=== PATIENT | male | born 1965 | race Caucasian/White ===

== ENCOUNTER 2018-08-21 21:06 | Inpatient (IN) | payer OTHER ==
[~2018-08-21] VITALS: Ht 177.8 cm; Wt 103.9 kg
[2018-08-21] MEDS ORDERED: SODIUM CHLORIDE 0.9% 1000ML BAG (SEPSIS BOLUS) IV ONE (21:45)
[2018-08-21] MEDS ORDERED: PIPERACILLIN/TAZ 3.375G PREMIX 50 ML IV ONE (21:45)
[2018-08-21] MEDS ORDERED: VANCOMYCIN 1 G PREMIX 200 ML IV ONE (21:45)
[2018-08-21 22:01] LABS: CHLORIDE 79 mEq/L (98-107)
[2018-08-21 22:03] LABS: BASOPHILS % 0.6 % (0.0-2.0); EOSINOPHILS % 0.7 % (0.0-5.0); LYMPHOCYTES % 13.9 % (20.0-50.0); MEAN CORPUSCULAR HEMOGLOBIN 26.9 pg (28.0-32.0); MEAN CORPUSCULAR VOLUME 81.8 fL (80.0-94.0); MEAN PLATELET VOLUME 9.1 fl (7.4-10.4); MONOCYTES % 9.9 % (2.0-8.0); NEUTROPHILS % 74.9 % (40.0-76.0); RED BLOOD CELL COUNT 2.51 mill/uL (4.7-6.1)
[2018-08-21 22:05] LABS: ETHANOL BLOOD 37 mg/dL
[2018-08-21 22:07] LABS: INR 2.2; PARTIAL THROMBOPLASTIN TIME 35.7 sec (23.4-31.0)
[2018-08-21 22:09] LABS: HEMATOCRIT. 20.5 % (42.0-52.0); HEMOGLOBIN. 6.8 g/dL (14.0-18.0); PLATELET 26 x1000/uL (130-400)
[2018-08-21 22:23] LABS: PLATELET ESTIMATE MARKEDLY DECREASED
[2018-08-21] MEDS ORDERED: LEVETIRACETAM 500MG PREMIX 100 ML IV ONE (23:45)
[2018-08-22] VITALS (13 sets, daily range): BP systolic 118–147; BP diastolic 71–88
[2018-08-22] MEDS ORDERED: SODIUM CHLORIDE 0.9% 250 ML IV ONE (00:46)
[2018-08-22 01:01] LABS: BG BASE EXCESS -3.7 mmol/L (-2.0-2.0); BG BILEVEL POS AIRWAY PRESSURE 18/5; BG CARBOXYHEMOGLOBIN 1.3 % (0.5-1.5); BG DEOXYHEMOGLOBIN 1.9 % (0.0-5.0); BG FRACTION INSPIRED OXYGEN 40; BG HCO3 ACT 20.9 mmol/L (22.0-26.0); BG METHEMOGLOBIN 0.4 % (0.0-1.5); BG OXYGEN SATURATION 98.1 % (92.0-98.5); BG OXYHEMOGLOBIN 96.4 % (94.0-97.0); BG PCO2 35.6 mmHg (35.0-45.0); BG PH 7.387 (7.350-7.450); BG PO2 108.2 mmHg (75.0-100.0); BG SAMPLE SITE RIGHT RADIAL; BG TOTAL HEMOGLOBIN 7.7 g/dL (12.0-18.0); BG VENT MODE MASK - BIPAP; BG VENT RATE 16 set
[2018-08-22] MEDS ORDERED: SODIUM CHLORIDE 3% 500 ML IV ONE (02:15)
[2018-08-22] MEDS ORDERED: HYDROCODONE/ACETAMINOPHEN 5/325MG TABLET PO PRN (05:00)
[2018-08-22] MEDS ORDERED: GUAIFENESIN 200MG/10ML SUGAR FREE UDC PO PRN (05:00)
[2018-08-22] MEDS ORDERED: HYDROMORPHONE HCL/PF 2MG/ML CPJ IV PRN (05:00)
[2018-08-22] MEDS ORDERED: IPRATROPIUM/ALBUTEROL 0.5-3(2.5)MG/3ML NEB INH PRN (05:00)
[2018-08-22] MEDS ORDERED: CLONIDINE 0.1MG TABLET PO PRN (05:00)
[2018-08-22] MEDS ORDERED: ONDANSETRON HCL 4MG/2ML INJ IV PRN (05:00)
[2018-08-22] MEDS ORDERED: DOCUSATE SODIUM 100MG CAPSULE PO PRN (05:00)
[2018-08-22] MEDS ORDERED: MAGNESIUM/ALUMINUM HYDROXIDE/SIMETHICONE 30ML UDC PO PRN (05:00)
[2018-08-22] MEDS ORDERED: NA PHOS,M-B/NA PHOS,DI-BA ENEMA 118ML PR PRN (05:00)
[2018-08-22] MEDS ORDERED: ACETAMINOPHEN 325MG TABLET PO PRN (05:00)
[2018-08-22 05:37] LABS: CHLORIDE 81 mEq/L (98-107)
[2018-08-22] MEDS: SODIUM CHLORIDE 0.9% 1,000 ML IV SCH (15:22)
[2018-08-22 16:04] LABS: HEMATOCRIT 22.2 % (42.0-52.0); HEMOGLOBIN 7.5 g/dL (14.0-18.0)
[2018-08-22 16:32] LABS: CLARITY URINE CLEAR (CLEAR); COLOR URINE ORANGE (YELLOW); KETONES URINE NEGATIVE (NEGATIVE); LEUKOCYTE ESTERASE URINE 1+ (NEGATIVE); NITRITE URINE POSITIVE (NEGATIVE); OCCULT BLOOD URINE NEGATIVE (NEGATIVE); PH URINE 5.5 (4.5-8.0); PROTEIN URINE NEGATIVE (NEGATIVE); SPECIFIC GRAVITY URINE 1.026 (1.005-1.030)
[2018-08-22 16:49] LABS: *AMPHETAMINES SCREEN URINE NEGATIVE (NEGATIVE); *BARBITURATES SCREEN URINE NEGATIVE (NEGATIVE); *BENZODIAZEPINES SCREEN URINE NEGATIVE (NEGATIVE); *COCAINE SCREEN URINE NEGATIVE (NEGATIVE); METHADONE URINE SCREEN NEGATIVE (NEGATIVE); OPIATES URINE SCREEN NEGATIVE (NEGATIVE)
[2018-08-22 16:50] LABS: CANNABINOID URINE SCREEN NEGATIVE (NEGATIVE); PHENCYCLIDINE URINE SCREEN NEGATIVE (NEGATIVE)
[2018-08-22 23:06] LABS: INR 2.4; PROTHROMBIN TIME 23.5 sec (9.6-11.0)
[2018-08-22 23:15] LABS: HEMATOCRIT 24.6 % (42.0-52.0); HEMOGLOBIN 8.4 g/dL (14.0-18.0)
[2018-08-23] VITALS (14 sets, daily range): BP systolic 117–149; BP diastolic 72–94
[2018-08-23] MEDS: SODIUM CHLORIDE 0.9% 1,000 ML IV SCH (04:40)
[2018-08-23 06:52] LABS: BASOPHILS % 0.6 % (0.0-2.0); EOSINOPHILS % 1.4 % (0.0-5.0); HEMATOCRIT. 24.6 % (42.0-52.0); HEMOGLOBIN. 8.4 g/dL (14.0-18.0); LYMPHOCYTES % 10.3 % (20.0-50.0); MEAN CORPUSCULAR HEMOGLOBIN 27.8 pg (28.0-32.0); MEAN CORPUSCULAR VOLUME 81.5 fL (80.0-94.0); MEAN PLATELET VOLUME 8.4 fl (7.4-10.4); MONOCYTES % 12.4 % (2.0-8.0); NEUTROPHILS % 75.3 % (40.0-76.0); RED BLOOD CELL COUNT 3.02 mill/uL (4.7-6.1); RED CELL DISTRIBUTION WIDTH 20.3 % (11.6-14.6)
[2018-08-23 07:41] LABS: CHLORIDE 82 mEq/L (98-107)
[2018-08-23 07:46] LABS: PLATELET 26 x1000/uL (130-400)
[2018-08-23 07:50] LABS: HDL CHOLESTEROL 11 mg/dL (40-59)
[2018-08-23 07:51] LABS: LDL CHOLESTEROL 68 mg/dL (5-100)
[2018-08-23 07:53] LABS: T4 FREE 0.96 ng/dL (0.76-1.46)
[2018-08-23] MEDS: LORAZEPAM 2MG/ML CPJ IV PRN ×2 (12:06→21:01)
[2018-08-23] MEDS: LEVOFLOXACIN 500MG PREMIX 100 ML IV SCH (12:56)
[2018-08-23] MEDS: FUROSEMIDE 40MG/4ML VIAL IVP SCH (16:49)
[2018-08-24] VITALS (12 sets, daily range): BP systolic 99–137; BP diastolic 68–84
[2018-08-24 06:00] LABS: HEMATOCRIT. 25.4 % (42.0-52.0); HEMOGLOBIN. 8.7 g/dL (14.0-18.0); MEAN CORPUSCULAR HEMOGLOBIN 28.3 pg (28.0-32.0); MEAN CORPUSCULAR VOLUME 82.4 fL (80.0-94.0); RED BLOOD CELL COUNT 3.09 mill/uL (4.7-6.1); RED CELL DISTRIBUTION WIDTH 19.9 % (11.6-14.6)
[2018-08-24 06:12] LABS: CHLORIDE 82 mEq/L (98-107)
[2018-08-24] MEDS: FUROSEMIDE 40MG/4ML VIAL IVP SCH ×2 (06:55→18:10)
[2018-08-24 10:55] LABS: PLATELET ESTIMATE MARKEDLY DECREASED
[2018-08-24 10:56] LABS: PLATELET 28 x1000/uL (130-400)
[2018-08-24] MEDS: LEVOFLOXACIN 500MG PREMIX 100 ML IV SCH (13:24)
[2018-08-24 14:18] LABS: HEPATITIS B SURFACE ANTIGEN NEGATIVE
[2018-08-24 14:48] LABS: HEPATITIS A AB IGM NEGATIVE (NEGATIVE)
[2018-08-25] VITALS (12 sets, daily range): BP systolic 97–125; BP diastolic 55–79
[2018-08-25 06:08] LABS: HEMATOCRIT. 25.8 % (42.0-52.0); HEMOGLOBIN. 8.7 g/dL (14.0-18.0); MEAN CORPUSCULAR HEMOGLOBIN 27.9 pg (28.0-32.0); MEAN CORPUSCULAR VOLUME 83.1 fL (80.0-94.0); MEAN PLATELET VOLUME 8.6 fl (7.4-10.4); RED CELL DISTRIBUTION WIDTH 20.4 % (11.6-14.6)
[2018-08-25 06:28] LABS: CHLORIDE 82 mEq/L (98-107)
[2018-08-25 06:37] LABS: INR 2.3; PROTHROMBIN TIME 23.2 sec (9.6-11.0)
[2018-08-25] MEDS: FUROSEMIDE 40MG/4ML VIAL IVP SCH ×2 (06:42→17:23)
[2018-08-25 06:52] LABS: PLATELET 30 x1000/uL (130-400)
[2018-08-25] MEDS: LEVOFLOXACIN 500MG PREMIX 100 ML IV SCH (13:06)
[2018-08-25] MEDS: LACTULOSE 20G/30ML UDC PO SCH ×2 (14:44→21:54)
[2018-08-26] VITALS (18 sets, daily range): BP systolic 95–136; BP diastolic 60–80
[2018-08-26 02:57] LABS: PLATELET ESTIMATE DECREASED
[2018-08-26 05:45] LABS: HEMATOCRIT. 25.7 % (42.0-52.0); HEMOGLOBIN. 8.7 g/dL (14.0-18.0); MEAN CORPUSCULAR HEMOGLOBIN 28.3 pg (28.0-32.0); MEAN CORPUSCULAR VOLUME 83.8 fL (80.0-94.0); MEAN PLATELET VOLUME 8.6 fl (7.4-10.4); RED BLOOD CELL COUNT 3.07 mill/uL (4.7-6.1); RED CELL DISTRIBUTION WIDTH 20.8 % (11.6-14.6)
[2018-08-26 06:41] LABS: PLATELET 31 x1000/uL (130-400)
[2018-08-26] MEDS: LACTULOSE 20G/30ML UDC PO SCH ×3 (06:59→21:44)
[2018-08-26] MEDS: FUROSEMIDE 40MG/4ML VIAL IVP SCH ×2 (06:59→16:37)
[2018-08-26 08:04] LABS: CHLORIDE 82 mEq/L (98-107)
[2018-08-26] MEDS ORDERED: POTASSIUM CHLORIDE 20MEQ TABLET SR PO SCH (09:15)
[2018-08-26 09:59] LABS: PLATELET ESTIMATE MARKEDLY DECREASED
[2018-08-26] MEDS: LEVOFLOXACIN 500MG PREMIX 100 ML IV SCH (12:30)
[2018-08-27] VITALS (23 sets, daily range): BP systolic 96–124; BP diastolic 52–75
[2018-08-27 05:12] LABS: PROTHROMBIN TIME 20.4 sec (9.6-11.0)
[2018-08-27 05:19] LABS: HEMATOCRIT. 22.5 % (42.0-52.0); HEMOGLOBIN. 7.6 g/dL (14.0-18.0); MEAN CORPUSCULAR HEMOGLOBIN 28.2 pg (28.0-32.0); MEAN CORPUSCULAR VOLUME 83.1 fL (80.0-94.0); MEAN PLATELET VOLUME 8.3 fl (7.4-10.4); RED BLOOD CELL COUNT 2.71 mill/uL (4.7-6.1); RED CELL DISTRIBUTION WIDTH 21.4 % (11.6-14.6)
[2018-08-27] MEDS: LACTULOSE 20G/30ML UDC PO SCH ×3 (05:23→21:34)
[2018-08-27 05:47] LABS: CHLORIDE 86 mEq/L (98-107)
[2018-08-27 06:01] LABS: PHOSPHORUS 3.4 mg/dL (2.5-4.9)
[2018-08-27 06:39] LABS: PLATELET 48 x1000/uL (130-400)
[2018-08-27 07:26] LABS: PLATELET ESTIMATE MARKEDLY DECREASED
[2018-08-27] MEDS: FUROSEMIDE 40MG/4ML VIAL IVP SCH ×2 (08:17→16:48)
[2018-08-27 12:36] LABS: HEMATOCRIT. 24.7 % (42.0-52.0); HEMOGLOBIN. 8.2 g/dL (14.0-18.0); MEAN CORPUSCULAR HEMOGLOBIN 27.8 pg (28.0-32.0); MEAN CORPUSCULAR VOLUME 84.3 fL (80.0-94.0); MEAN PLATELET VOLUME 8.4 fl (7.4-10.4); RED BLOOD CELL COUNT 2.93 mill/uL (4.7-6.1); RED CELL DISTRIBUTION WIDTH 21.3 % (11.6-14.6)
[2018-08-27 12:48] LABS: INR 2.1; PROTHROMBIN TIME 20.6 sec (9.6-11.0)
[2018-08-27 12:49] LABS: PLATELET 47 x1000/uL (130-400)
[2018-08-27 13:40] LABS: PLATELET ESTIMATE MARKEDLY DECREASED
[2018-08-27] MEDS: THIAMINE HCL 100MG TABLET PO SCH (16:47)
[2018-08-27] MEDS: MULTIVITAMINS,THER W-MINERALS TABLET PO SCH (16:48)
[2018-08-27] MEDS: FOLIC ACID/VITAMIN B COMP W-C TABLET PO SCH (16:48)
[2018-08-27] MEDS: LEVOFLOXACIN 500MG PREMIX 100 ML IV SCH (16:49)
[2018-08-27 17:03] LABS: HEPATITIS B SURFACE ANTIGEN NEGATIVE
[2018-08-27 17:32] LABS: HEPATITIS A AB IGM NEGATIVE (NEGATIVE)
[2018-08-28] VITALS (12 sets, daily range): BP systolic 101–119; BP diastolic 64–77
[2018-08-28] MEDS: LACTULOSE 20G/30ML UDC PO SCH ×3 (05:20→21:45)
[2018-08-28 06:35] LABS: HEMATOCRIT. 23.5 % (42.0-52.0); HEMOGLOBIN. 7.8 g/dL (14.0-18.0); MEAN CORPUSCULAR HEMOGLOBIN 27.7 pg (28.0-32.0); MEAN CORPUSCULAR VOLUME 83.8 fL (80.0-94.0); MEAN PLATELET VOLUME 8.5 fl (7.4-10.4); RED CELL DISTRIBUTION WIDTH 20.8 % (11.6-14.6)
[2018-08-28 06:53] LABS: INR 1.9; PROTHROMBIN TIME 19.2 sec (9.6-11.0)
[2018-08-28 07:12] LABS: PLATELET 46 x1000/uL (130-400)
[2018-08-28 07:29] LABS: CHLORIDE 85 mEq/L (98-107)
[2018-08-28 07:31] LABS: PLATELET ESTIMATE MARKEDLY DECREASED
[2018-08-28] MEDS: THIAMINE HCL 100MG TABLET PO SCH (08:43)
[2018-08-28] MEDS: MULTIVITAMINS,THER W-MINERALS TABLET PO SCH (08:43)
[2018-08-28] MEDS: FOLIC ACID/VITAMIN B COMP W-C TABLET PO SCH (08:43)
[2018-08-28] MEDS: FUROSEMIDE 40MG/4ML VIAL IVP SCH ×2 (08:43→17:25)
[2018-08-28] MEDS: LEVOFLOXACIN 500MG PREMIX 100 ML IV SCH (13:31)
[2018-08-29] VITALS (12 sets, daily range): BP systolic 104–127; BP diastolic 61–79
[2018-08-29] MEDS: LACTULOSE 20G/30ML UDC PO SCH ×2 (06:00→16:51)
[2018-08-29 06:17] LABS: HEMATOCRIT. 26.1 % (42.0-52.0); HEMOGLOBIN. 8.7 g/dL (14.0-18.0); MEAN CORPUSCULAR HEMOGLOBIN 27.8 pg (28.0-32.0); MEAN PLATELET VOLUME 8.2 fl (7.4-10.4); RED BLOOD CELL COUNT 3.11 mill/uL (4.7-6.1); RED CELL DISTRIBUTION WIDTH 21.8 % (11.6-14.6)
[2018-08-29 06:34] LABS: CHLORIDE 83 mEq/L (98-107)
[2018-08-29] MEDS: FUROSEMIDE 40MG/4ML VIAL IVP SCH ×2 (06:35→18:00)
[2018-08-29 07:08] LABS: PLATELET 46 x1000/uL (130-400)
[2018-08-29] MEDS ORDERED: POTASSIUM CHLORIDE 20MEQ/PACKET PO NR (09:00)
[2018-08-29] MEDS: FOLIC ACID/VITAMIN B COMP W-C TABLET PO SCH (09:08)
[2018-08-29] MEDS: MULTIVITAMINS,THER W-MINERALS TABLET PO SCH (09:08)
[2018-08-29] MEDS: THIAMINE HCL 100MG TABLET PO SCH (09:08)
[2018-08-29 09:42] LABS: PLATELET ESTIMATE MARKEDLY DECREASED
[2018-08-29] MEDS ORDERED: ALBUMIN HUMAN 25GM/100ML (25%) IV NR (16:30)
[2018-08-29 18:32] LABS: INR 2.1; PROTHROMBIN TIME 20.7 sec (9.6-11.0)
[2018-08-30] VITALS (12 sets, daily range): BP systolic 84–136; BP diastolic 47–73
[2018-08-30 06:59] LABS: HEMATOCRIT. 24.5 % (42.0-52.0); HEMOGLOBIN. 8.1 g/dL (14.0-18.0); MEAN CORPUSCULAR HEMOGLOBIN 28.1 pg (28.0-32.0); MEAN CORPUSCULAR VOLUME 84.5 fL (80.0-94.0); MEAN PLATELET VOLUME 8.5 fl (7.4-10.4); PLATELET 51 x1000/uL (130-400); RED CELL DISTRIBUTION WIDTH 21.3 % (11.6-14.6)
[2018-08-30 07:08] LABS: INR 1.9; PARTIAL THROMBOPLASTIN TIME 35.5 sec (23.4-31.0); PROTHROMBIN TIME 18.5 sec (9.6-11.0)
[2018-08-30] MEDS: FUROSEMIDE 40MG/4ML VIAL IVP SCH ×2 (07:17→18:16)
[2018-08-30 07:51] LABS: CHLORIDE 86 mEq/L (98-107)
[2018-08-30 07:57] LABS: PHOSPHORUS 3.5 mg/dL (2.5-4.9)
[2018-08-30 08:03] LABS: PLATELET ESTIMATE DECREASED
[2018-08-30] MEDS: LACTULOSE 20G/30ML UDC PO SCH ×2 (08:54→18:16)
[2018-08-30] MEDS: THIAMINE HCL 100MG TABLET PO SCH (08:54)
[2018-08-30] MEDS: MULTIVITAMINS,THER W-MINERALS TABLET PO SCH (08:54)
[2018-08-30] MEDS: FOLIC ACID/VITAMIN B COMP W-C TABLET PO SCH (08:54)
[2018-08-30] MEDS ORDERED: SODIUM BICARBONATE 4% (2.4MEQ) 5ML VIAL IV ONE (11:14)
[2018-08-30] MEDS ORDERED: LIDOCAINE HCL 1% 20ML VIAL (Pyxis) INJ ONE (11:14)
[2018-08-30] MEDS ORDERED: ALBUMIN HUMAN 25GM/100ML (25%) IV NR (14:00)
[2018-08-31] VITALS (13 sets, daily range): BP systolic 88–111; BP diastolic 43–65
[2018-08-31] MEDS: FUROSEMIDE 40MG/4ML VIAL IVP SCH ×2 (06:24→17:42)
[2018-08-31 06:54] LABS: HEMATOCRIT. 25.7 % (42.0-52.0); HEMOGLOBIN. 8.6 g/dL (14.0-18.0); MEAN CORPUSCULAR HEMOGLOBIN 27.8 pg (28.0-32.0); MEAN CORPUSCULAR VOLUME 83.7 fL (80.0-94.0); MEAN PLATELET VOLUME 8.7 fl (7.4-10.4); RED BLOOD CELL COUNT 3.08 mill/uL (4.7-6.1); RED CELL DISTRIBUTION WIDTH 21.1 % (11.6-14.6)
[2018-08-31 07:22] LABS: PLATELET 45 x1000/uL (130-400)
[2018-08-31 07:28] LABS: CHLORIDE 87 mEq/L (98-107)
[2018-08-31] MEDS: LACTULOSE 20G/30ML UDC PO SCH ×2 (08:16→17:46)
[2018-08-31] MEDS: SPIRONOLACTONE 25MG TABLET PO SCH (08:16)
[2018-08-31] MEDS: FOLIC ACID/VITAMIN B COMP W-C TABLET PO SCH (08:16)
[2018-08-31] MEDS: THIAMINE HCL 100MG TABLET PO SCH (08:16)
[2018-08-31] MEDS: MULTIVITAMINS,THER W-MINERALS TABLET PO SCH (08:16)
[2018-08-31 10:07] LABS: PLATELET ESTIMATE MARKEDLY DECREASED
[2018-08-31] MEDS ORDERED: POTASSIUM CHLORIDE INJ 40 MEQ in DEXT 5% WATER 250 ML IV SCH (11:00)
[2018-08-31] MEDS: POTASSIUM CHLORIDE 20MEQ/PACKET PO SCH (11:02)
[2018-08-31] MEDS ORDERED: POTASSIUM CHLORIDE 20MEQ TABLET SR PO SCH (16:00)
[2018-09-01] VITALS (10 sets, daily range): BP systolic 91–109; BP diastolic 54–79
[2018-09-01] MEDS: FUROSEMIDE 40MG/4ML VIAL IVP SCH ×2 (06:20→17:30)
[2018-09-01 06:46] LABS: CHLORIDE 91 mEq/L (98-107)
[2018-09-01 07:07] LABS: HEMATOCRIT. 24.3 % (42.0-52.0); HEMOGLOBIN. 8.1 g/dL (14.0-18.0); MEAN CORPUSCULAR HEMOGLOBIN 28.1 pg (28.0-32.0); MEAN CORPUSCULAR VOLUME 84.1 fL (80.0-94.0); MEAN PLATELET VOLUME 8.8 fl (7.4-10.4); RED CELL DISTRIBUTION WIDTH 21.3 % (11.6-14.6)
[2018-09-01 07:15] LABS: PLATELET 41 x1000/uL (130-400)
[2018-09-01] MEDS: POTASSIUM CHLORIDE 20MEQ/PACKET PO SCH (09:09)
[2018-09-01] MEDS: LACTULOSE 20G/30ML UDC PO SCH ×2 (09:09→17:30)
[2018-09-01] MEDS: SPIRONOLACTONE 25MG TABLET PO SCH (09:09)
[2018-09-01] MEDS: FOLIC ACID/VITAMIN B COMP W-C TABLET PO SCH (09:10)
[2018-09-01] MEDS: MULTIVITAMINS,THER W-MINERALS TABLET PO SCH (09:10)
[2018-09-01] MEDS: THIAMINE HCL 100MG TABLET PO SCH (09:10)
[2018-09-01 09:40] LABS: PLATELET ESTIMATE MARKEDLY DECREASED
[2018-09-01] MEDS ORDERED: KCL 20MEQ/100ML PREMIX 100 ML IV SCH (11:30)
[2018-09-02] VITALS (8 sets, daily range): BP systolic 94–111; BP diastolic 56–65
[2018-09-02 06:50] LABS: BASOPHILS % 1.4 % (0.0-2.0); EOSINOPHILS % 1.3 % (0.0-5.0); HEMATOCRIT. 24.4 % (42.0-52.0); HEMOGLOBIN. 8.1 g/dL (14.0-18.0); LYMPHOCYTES % 16.4 % (20.0-50.0); MEAN CORPUSCULAR HEMOGLOBIN 28.1 pg (28.0-32.0); MEAN CORPUSCULAR VOLUME 84.3 fL (80.0-94.0); MEAN PLATELET VOLUME 8.7 fl (7.4-10.4); MONOCYTES % 15.8 % (2.0-8.0); NEUTROPHILS % 65.1 % (40.0-76.0); RED CELL DISTRIBUTION WIDTH 21.4 % (11.6-14.6)
[2018-09-02] MEDS: FUROSEMIDE 40MG/4ML VIAL IVP SCH ×2 (07:07→17:29)
[2018-09-02 07:16] LABS: CHLORIDE 91 mEq/L (98-107)
[2018-09-02 07:50] LABS: PLATELET 44 x1000/uL (130-400)
[2018-09-02] MEDS: FOLIC ACID/VITAMIN B COMP W-C TABLET PO SCH (10:14)
[2018-09-02] MEDS: MULTIVITAMINS,THER W-MINERALS TABLET PO SCH (10:15)
[2018-09-02] MEDS: THIAMINE HCL 100MG TABLET PO SCH (10:15)
[2018-09-02] MEDS: POTASSIUM CHLORIDE 20MEQ/PACKET PO SCH ×2 (10:15→17:56)
[2018-09-02] MEDS: SPIRONOLACTONE 25MG TABLET PO SCH (10:16)
[2018-09-02] MEDS: LACTULOSE 20G/30ML UDC PO SCH ×2 (10:16→17:55)
[2018-09-03] VITALS (7 sets, daily range): BP systolic 60–109; BP diastolic 23–63
[2018-09-03] MEDS: FUROSEMIDE 40MG/4ML VIAL IVP SCH ×2 (06:36→18:09)
[2018-09-03 07:32] LABS: CHLORIDE 92 mEq/L (98-107)
[2018-09-03 07:39] LABS: PHOSPHORUS 3.2 mg/dL (2.5-4.9)
[2018-09-03 07:42] LABS: BASOPHILS % 1.5 % (0.0-2.0); EOSINOPHILS % 2.3 % (0.0-5.0); HEMATOCRIT. 24.8 % (42.0-52.0); HEMOGLOBIN. 8.2 g/dL (14.0-18.0); LYMPHOCYTES % 15.4 % (20.0-50.0); MEAN CORPUSCULAR HEMOGLOBIN 27.9 pg (28.0-32.0); MEAN CORPUSCULAR VOLUME 84.2 fL (80.0-94.0); MEAN PLATELET VOLUME 9.1 fl (7.4-10.4); NEUTROPHILS % 67.8 % (40.0-76.0); RED BLOOD CELL COUNT 2.95 mill/uL (4.7-6.1); RED CELL DISTRIBUTION WIDTH 21.1 % (11.6-14.6)
[2018-09-03 07:59] LABS: PLATELET 42 x1000/uL (130-400)
[2018-09-03] MEDS: POTASSIUM CHLORIDE 20MEQ/PACKET PO SCH ×2 (10:47→18:10)
[2018-09-03] MEDS: FOLIC ACID/VITAMIN B COMP W-C TABLET PO SCH (10:47)
[2018-09-03] MEDS: THIAMINE HCL 100MG TABLET PO SCH (10:47)
[2018-09-03] MEDS: MULTIVITAMINS,THER W-MINERALS TABLET PO SCH (10:47)
[2018-09-03] MEDS: LACTULOSE 20G/30ML UDC PO SCH ×2 (10:48→18:13)
[2018-09-03] MEDS: SPIRONOLACTONE 25MG TABLET PO SCH (10:48)
[2018-09-03 11:52] LABS: PLATELET ESTIMATE MARKEDLY DECREASED
[2018-09-03] MEDS ORDERED: ALBUMIN HUMAN 12.5GM/50ML (25%) IV NR (17:30)
[2018-09-04] VITALS: BP 95/61
[2018-09-04 04:00] VITALS: BP_SYST 65; BP_SYST 85; BP_SYST 97; BP_DIAS 34; BP_DIAS 48; BP_DIAS 60
[2018-09-04] MEDS: FUROSEMIDE 40MG/4ML VIAL IVP SCH ×2 (06:40→16:40)
[2018-09-04] MEDS: POTASSIUM CHLORIDE 20MEQ/PACKET PO SCH ×2 (08:38→16:40)
[2018-09-04] MEDS: FOLIC ACID/VITAMIN B COMP W-C TABLET PO SCH (08:46)
[2018-09-04] MEDS: MULTIVITAMINS,THER W-MINERALS TABLET PO SCH (08:46)
[2018-09-04] MEDS: THIAMINE HCL 100MG TABLET PO SCH (08:46)
[2018-09-04] MEDS: LACTULOSE 20G/30ML UDC PO SCH ×2 (08:47→16:39)
[2018-09-04] MEDS: SPIRONOLACTONE 25MG TABLET PO SCH (08:47)
[2018-09-04] MEDS ORDERED: MIDODRINE HCL 2.5MG TABLET PO SCH (10:00)
[2018-09-04] MEDS ORDERED: MIDODRINE HCL 5MG TABLET PO SCH (11:01)
[2018-09-04 12:55] LABS: HEMATOCRIT 25.5 % (42.0-52.0); HEMOGLOBIN 8.5 g/dL (14.0-18.0); MEAN CORPUSCULAR HEMOGLOBIN 28.2 pg (28.0-32.0); MEAN CORPUSCULAR VOLUME 85.2 fL (80.0-94.0); RED CELL DISTRIBUTION WIDTH 21.8 % (11.6-14.6)
[2018-09-04 13:24] LABS: PLATELET 42 x1000/uL (130-400)
[2018-09-04] MEDS: MIDODRINE HCL 2.5MG TABLET PO SCH ×2 (13:26→16:39)
[2018-09-04 20:00] VITALS: BP 102/65
[2018-09-05] VITALS: BP 102/58
[2018-09-05 04:00] VITALS: BP 105/61
[2018-09-05] MEDS: FUROSEMIDE 40MG/4ML VIAL IVP SCH ×2 (07:00→16:24)
[2018-09-05 07:36] LABS: CHLORIDE 94 mEq/L (98-107)
[2018-09-05 07:47] LABS: BASOPHILS % 2.7 % (0.0-2.0); EOSINOPHILS % 3.9 % (0.0-5.0); HEMATOCRIT. 24.7 % (42.0-52.0); HEMOGLOBIN. 8.2 g/dL (14.0-18.0); LYMPHOCYTES % 16.9 % (20.0-50.0); MEAN CORPUSCULAR VOLUME 84.7 fL (80.0-94.0); MEAN PLATELET VOLUME 8.8 fl (7.4-10.4); MONOCYTES % 13.1 % (2.0-8.0); NEUTROPHILS % 63.4 % (40.0-76.0); RED BLOOD CELL COUNT 2.91 mill/uL (4.7-6.1)
[2018-09-05 07:50] LABS: PLATELET 44 x1000/uL (130-400)
[2018-09-05] MEDS: POTASSIUM CHLORIDE 20MEQ/PACKET PO SCH ×2 (08:59→16:24)
[2018-09-05] MEDS: LACTULOSE 20G/30ML UDC PO SCH ×2 (08:59→16:24)
[2018-09-05] MEDS: MULTIVITAMINS,THER W-MINERALS TABLET PO SCH (09:00)
[2018-09-05] MEDS: MIDODRINE HCL 2.5MG TABLET PO SCH ×3 (09:00→16:24)
[2018-09-05] MEDS: FOLIC ACID/VITAMIN B COMP W-C TABLET PO SCH (09:00)
[2018-09-05] MEDS: SPIRONOLACTONE 25MG TABLET PO SCH (09:01)
[2018-09-05] MEDS: THIAMINE HCL 100MG TABLET PO SCH (09:05)
[2018-09-05 09:22] LABS: PLATELET ESTIMATE MARKEDLY DECREASED
[2018-09-05 20:00] VITALS: BP 98/62
[2018-09-05 20:34] LABS: PROTHROMBIN TIME 20.4 sec (9.6-11.0)
[2018-09-06] VITALS: BP_SYST 107; BP_SYST 99; BP_DIAS 63; BP_DIAS 68
[2018-09-06 04:00] VITALS: BP 101/65
[2018-09-06] MEDS: FUROSEMIDE 40MG/4ML VIAL IVP SCH ×2 (06:13→16:10)
[2018-09-06 07:05] LABS: CHLORIDE 96 mEq/L (98-107)
[2018-09-06 07:12] LABS: BASOPHILS % 1.4 % (0.0-2.0); EOSINOPHILS % 5.4 % (0.0-5.0); HEMATOCRIT. 25.5 % (42.0-52.0); HEMOGLOBIN. 8.4 g/dL (14.0-18.0); LYMPHOCYTES % 20.4 % (20.0-50.0); MEAN CORPUSCULAR HEMOGLOBIN 28.1 pg (28.0-32.0); MEAN CORPUSCULAR VOLUME 85.3 fL (80.0-94.0); MEAN PLATELET VOLUME 9.2 fl (7.4-10.4); NEUTROPHILS % 58.8 % (40.0-76.0); RED BLOOD CELL COUNT 2.99 mill/uL (4.7-6.1); RED CELL DISTRIBUTION WIDTH 22.2 % (11.6-14.6)
[2018-09-06 07:33] LABS: PLATELET 42 x1000/uL (130-400)
[2018-09-06] MEDS: MULTIVITAMINS,THER W-MINERALS TABLET PO SCH (09:00)
[2018-09-06] MEDS: POTASSIUM CHLORIDE 20MEQ/PACKET PO SCH ×2 (09:00→16:06)
[2018-09-06] MEDS: THIAMINE HCL 100MG TABLET PO SCH (09:01)
[2018-09-06] MEDS: SPIRONOLACTONE 25MG TABLET PO SCH (09:01)
[2018-09-06] MEDS: FOLIC ACID/VITAMIN B COMP W-C TABLET PO SCH (09:01)
[2018-09-06] MEDS: LACTULOSE 20G/30ML UDC PO SCH ×2 (10:28→16:06)
[2018-09-06] MEDS: MIDODRINE HCL 5MG TABLET PO SCH ×2 (13:14→16:10)
[2018-09-06 20:00] VITALS: BP 92/69
[2018-09-07] VITALS (20 sets, daily range): BP systolic 90–114; BP diastolic 59–73
[2018-09-07] MEDS: FUROSEMIDE 40MG/4ML VIAL IVP SCH ×2 (06:44→17:15)
[2018-09-07 08:15] LABS: PROTHROMBIN TIME 19.7 sec (9.6-11.0)
[2018-09-07 08:19] LABS: HEMATOCRIT. 24.4 % (42.0-52.0); HEMOGLOBIN. 8.3 g/dL (14.0-18.0); MEAN CORPUSCULAR HEMOGLOBIN 28.7 pg (28.0-32.0); MEAN CORPUSCULAR VOLUME 84.8 fL (80.0-94.0); MEAN PLATELET VOLUME 9.3 fl (7.4-10.4); RED BLOOD CELL COUNT 2.88 mill/uL (4.7-6.1); RED CELL DISTRIBUTION WIDTH 22.2 % (11.6-14.6)
[2018-09-07 08:32] LABS: PLATELET 42 x1000/uL (130-400)
[2018-09-07 08:55] LABS: CHLORIDE 95 mEq/L (98-107)
[2018-09-07] MEDS: MIDODRINE HCL 5MG TABLET PO SCH ×3 (09:00→17:50)
[2018-09-07] MEDS: MULTIVITAMINS,THER W-MINERALS TABLET PO SCH (09:00)
[2018-09-07] MEDS: LACTULOSE 20G/30ML UDC PO SCH ×2 (09:00→17:49)
[2018-09-07] MEDS: POTASSIUM CHLORIDE 20MEQ/PACKET PO SCH ×2 (09:00→17:49)
[2018-09-07] MEDS: FOLIC ACID/VITAMIN B COMP W-C TABLET PO SCH (09:00)
[2018-09-07] MEDS: SPIRONOLACTONE 25MG TABLET PO SCH (09:00)
[2018-09-07] MEDS: THIAMINE HCL 100MG TABLET PO SCH (09:00)
[2018-09-07 09:37] LABS: PLATELET ESTIMATE MARKEDLY DECREASED
[2018-09-07 13:08] LABS: INR 1.8; PROTHROMBIN TIME 18.5 sec (9.6-11.0)
[2018-09-08] VITALS (10 sets, daily range): BP systolic 90–109; BP diastolic 58–72
[2018-09-08] MEDS: FUROSEMIDE 40MG/4ML VIAL IVP SCH ×2 (06:26→17:07)
[2018-09-08] MEDS ORDERED: SODIUM BICARBONATE 4% (2.4MEQ) 5ML VIAL IV ONE (07:43)
[2018-09-08 07:46] LABS: HEMATOCRIT. 24.6 % (42.0-52.0); HEMOGLOBIN. 8.3 g/dL (14.0-18.0); MEAN CORPUSCULAR HEMOGLOBIN 28.5 pg (28.0-32.0); MEAN CORPUSCULAR VOLUME 84.8 fL (80.0-94.0); MEAN PLATELET VOLUME 8.9 fl (7.4-10.4); RED BLOOD CELL COUNT 2.91 mill/uL (4.7-6.1); RED CELL DISTRIBUTION WIDTH 21.9 % (11.6-14.6)
[2018-09-08 07:50] LABS: INR 1.8; PARTIAL THROMBOPLASTIN TIME 35.5 sec (23.4-31.0); PROTHROMBIN TIME 18.4 sec (9.6-11.0)
[2018-09-08 08:13] LABS: PLATELET 45 x1000/uL (130-400)
[2018-09-08] MEDS: MIDODRINE HCL 5MG TABLET PO SCH ×3 (08:45→17:56)
[2018-09-08] MEDS: SPIRONOLACTONE 25MG TABLET PO SCH (09:00)
[2018-09-08] MEDS: MULTIVITAMINS,THER W-MINERALS TABLET PO SCH ×2 (09:00→09:58)
[2018-09-08] MEDS: POTASSIUM CHLORIDE 20MEQ/PACKET PO SCH ×3 (09:00→17:56)
[2018-09-08] MEDS: FOLIC ACID/VITAMIN B COMP W-C TABLET PO SCH ×2 (09:00→09:58)
[2018-09-08] MEDS: THIAMINE HCL 100MG TABLET PO SCH ×2 (09:00→09:58)
[2018-09-08] MEDS: LACTULOSE 20G/30ML UDC PO SCH ×3 (09:00→17:56)
[2018-09-09] VITALS: BP 109/62
[2018-09-09 01:01] LABS: PLATELET ESTIMATE DECREASED
[2018-09-09 04:00] VITALS: BP 101/66
[2018-09-09] MEDS: FUROSEMIDE 40MG/4ML VIAL IVP SCH ×2 (06:03→17:08)
[2018-09-09 07:03] LABS: HEMOGLOBIN. 8.6 g/dL (14.0-18.0); MEAN CORPUSCULAR HEMOGLOBIN 28.3 pg (28.0-32.0); MEAN CORPUSCULAR VOLUME 85.4 fL (80.0-94.0); MEAN PLATELET VOLUME 8.7 fl (7.4-10.4); RED BLOOD CELL COUNT 3.04 mill/uL (4.7-6.1); RED CELL DISTRIBUTION WIDTH 22.4 % (11.6-14.6)
[2018-09-09 07:12] LABS: CHLORIDE 98 mEq/L (98-107)
[2018-09-09 08:00] VITALS: BP 102/62
[2018-09-09 08:03] LABS: PLATELET 47 x1000/uL (130-400)
[2018-09-09] MEDS: LACTULOSE 20G/30ML UDC PO SCH ×2 (08:55→17:08)
[2018-09-09] MEDS: SPIRONOLACTONE 25MG TABLET PO SCH (08:55)
[2018-09-09] MEDS: FOLIC ACID/VITAMIN B COMP W-C TABLET PO SCH (08:55)
[2018-09-09] MEDS: POTASSIUM CHLORIDE 20MEQ/PACKET PO SCH ×2 (08:55→17:08)
[2018-09-09] MEDS: MULTIVITAMINS,THER W-MINERALS TABLET PO SCH (08:56)
[2018-09-09] MEDS: THIAMINE HCL 100MG TABLET PO SCH (08:56)
[2018-09-09] MEDS: MIDODRINE HCL 5MG TABLET PO SCH ×3 (08:56→17:09)
[2018-09-09 10:33] LABS: PLATELET ESTIMATE MARKEDLY DECREASED
[2018-09-09 12:00] VITALS: BP 93/63
[2018-09-09 16:00] VITALS: BP 127/55
[2018-09-09 20:00] VITALS: BP 93/50
[2018-09-10] VITALS: BP 98/54
[2018-09-10 04:00] VITALS: BP 97/50
[2018-09-10] MEDS: FUROSEMIDE 40MG/4ML VIAL IVP SCH ×2 (06:26→17:41)
[2018-09-10 06:52] LABS: HEMOGLOBIN. 8.3 g/dL (14.0-18.0); MEAN CORPUSCULAR HEMOGLOBIN 28.4 pg (28.0-32.0); MEAN CORPUSCULAR VOLUME 85.5 fL (80.0-94.0); MEAN PLATELET VOLUME 8.6 fl (7.4-10.4); RED BLOOD CELL COUNT 2.93 mill/uL (4.7-6.1); RED CELL DISTRIBUTION WIDTH 22.5 % (11.6-14.6)
[2018-09-10 07:05] LABS: CHLORIDE 97 mEq/L (98-107)
[2018-09-10 08:00] VITALS: BP 90/52
[2018-09-10 08:10] LABS: PLATELET 46 x1000/uL (130-400)
[2018-09-10] MEDS: LACTULOSE 20G/30ML UDC PO SCH ×2 (09:15→17:41)
[2018-09-10] MEDS: MULTIVITAMINS,THER W-MINERALS TABLET PO SCH (09:15)
[2018-09-10] MEDS: FOLIC ACID/VITAMIN B COMP W-C TABLET PO SCH (09:15)
[2018-09-10] MEDS: POTASSIUM CHLORIDE 20MEQ/PACKET PO SCH ×2 (09:15→17:41)
[2018-09-10] MEDS: SPIRONOLACTONE 25MG TABLET PO SCH (09:16)
[2018-09-10] MEDS: MIDODRINE HCL 5MG TABLET PO SCH ×3 (09:16→17:41)
[2018-09-10] MEDS: THIAMINE HCL 100MG TABLET PO SCH (09:16)
[2018-09-10 11:59] LABS: ATYPICAL LYMPHOCYTES 1
[2018-09-10 12:00] VITALS: BP 89/56
[2018-09-10 12:00] LABS: PLATELET ESTIMATE MARKEDLY DECREASED
[2018-09-10 16:00] VITALS: BP 98/61
[2018-09-10 20:00] VITALS: BP 97/55
[2018-09-11] VITALS: BP 101/53
[2018-09-11 04:00] VITALS: BP 99/56
[2018-09-11] MEDS: FUROSEMIDE 40MG/4ML VIAL IVP SCH (07:52)
[2018-09-11 08:00] VITALS: BP 96/52
[2018-09-11] MEDS: LACTULOSE 20G/30ML UDC PO SCH (09:12)
[2018-09-11] MEDS: MULTIVITAMINS,THER W-MINERALS TABLET PO SCH (09:12)
[2018-09-11] MEDS: POTASSIUM CHLORIDE 20MEQ/PACKET PO SCH (09:12)
[2018-09-11] MEDS: FOLIC ACID/VITAMIN B COMP W-C TABLET PO SCH (09:12)
[2018-09-11] MEDS: SPIRONOLACTONE 25MG TABLET PO SCH (09:12)
[2018-09-11] MEDS: THIAMINE HCL 100MG TABLET PO SCH (09:12)
[2018-09-11] MEDS: MIDODRINE HCL 5MG TABLET PO SCH ×2 (09:12→13:28)
[2018-09-11 11:58] VITALS: BP 98/61
[2018-09-11 12:54] VITALS: BP 98/61
== END 2018-09-11 14:40 | disposition home or self-care (01) | DRG 871 ==
LOC: ER 21:06 → 5EST 08-22 02:10 → EDBEDREQTM 08-22 02:17 → EDBEDREQ 08-22 02:17 → ENRESERV 08-22 09:46 → 8WST 09-02 15:45
PROVIDERS: ADMIT Internal Medicine; ATTEND Internal Medicine
PROC: 30233N1 Transfusion of Nonautologous Red Blood Cells into Peripheral Vein, Percutaneous Approach (ICD-10-PCS; 2018-08-22)
PROC: 5A09357 Assistance with Respiratory Ventilation, Less than 24 Consecutive Hours, Continuous Positive Airway Pressure (ICD-10-PCS; 2018-08-22)
PROC: 30233R1 Transfusion of Nonautologous Platelets into Peripheral Vein, Percutaneous Approach (ICD-10-PCS; 2018-08-26)
PROC: 30233K1 Transfusion of Nonautologous Frozen Plasma into Peripheral Vein, Percutaneous Approach (ICD-10-PCS; 2018-08-27)
PROC: 0W9G3ZZ Drainage of Peritoneal Cavity, Percutaneous Approach (ICD-10-PCS; principal; 2018-08-30)
PROC: 0W9G3ZZ Drainage of Peritoneal Cavity, Percutaneous Approach (ICD-10-PCS; 2018-09-08)
DX: A41.9 Sepsis, unspecified organism (principal); G93.41 Metabolic encephalopathy; J96.01 Acute respiratory failure with hypoxia; E87.2 Acidosis; D68.9 Coagulation defect, unspecified; E87.1 Hypo-osmolality and hyponatremia; N39.0 Urinary tract infection, site not specified; D61.818 Other pancytopenia; K92.2 Gastrointestinal hemorrhage, unspecified; K76.6 Portal hypertension; T79.A3XA Traumatic compartment syndrome of abdomen, initial encounter; Z99.11 Dependence on respirator [ventilator] status; F10.129 Alcohol abuse with intoxication, unspecified; K80.20 Calculus of gallbladder without cholecystitis without obstruction; K40.20 Bilateral inguinal hernia, without obstruction or gangrene, not specified as recurrent; K70.40 Alcoholic hepatic failure without coma; K70.31 Alcoholic cirrhosis of liver with ascites; E87.6 Hypokalemia; G40.909 Epilepsy, unspecified, not intractable, without status epilepticus; I11.0 Hypertensive heart disease with heart failure; I25.10 Atherosclerotic heart disease of native coronary artery without angina pectoris; I50.9 Heart failure, unspecified; J44.9 Chronic obstructive pulmonary disease, unspecified; X58.XXXA Exposure to other specified factors, initial encounter; Z87.891 Personal history of nicotine dependence
CPT/HCPCS: 36415; 36600; 49083; 71045; 74176; 76700; 76705; 80048; 80061; 80076; 80305; 80320; 82140; 82270; 82375; 82533; 82805; 83605; 83735; 83880; 83930; 84100; 84145; 84295; 84439; 84443; 84484; 85014; 85018; 85027; 85049; 85384; 86705; 86709; 86803; 86850; 86900; 86920; 86927; 86945; 87340; 93005; 93306; 93970; 96365; 96366; 96367; 96368; 97110; 97116; 97162; 97166; 97530; 97535; 99291; A6261; J1940; J1953; J1956; J2060; J2543; J3370; J3480; J3490; J7030; J7040; J7050; J7060; P9016; P9017; P9034; P9047; G0480

== ENCOUNTER 2018-10-01 13:44 | Inpatient (IN) | payer SELFPAY ==
[~2018-10-01] VITALS: Ht 170.2 cm; Wt 96.3 kg
[2018-10-01 15:30] LABS: BASOPHILS % 0.9 % (0.0-2.0); HEMATOCRIT. 28.2 % (42.0-52.0); HEMOGLOBIN. 9.9 g/dL (14.0-18.0); LYMPHOCYTES % 8.3 % (20.0-50.0); MEAN CORPUSCULAR HEMOGLOBIN 30.5 pg (28.0-32.0); MEAN CORPUSCULAR VOLUME 86.4 fL (80.0-94.0); MEAN PLATELET VOLUME 8.1 fl (7.4-10.4); MONOCYTES % 5.8 % (2.0-8.0); PLATELET 61 x1000/uL (130-400); RED BLOOD CELL COUNT 3.26 mill/uL (4.7-6.1); RED CELL DISTRIBUTION WIDTH 26.5 % (11.6-14.6)
[2018-10-01 15:36] LABS: CHLORIDE 74 mEq/L (98-107)
[2018-10-01 15:37] LABS: INR 1.7; PROTHROMBIN TIME 17.4 sec (9.6-11.0)
[2018-10-01 16:00] LABS: PLATELET ESTIMATE MARKEDLY DECREASED
[2018-10-01] MEDS ORDERED: SODIUM CHLORIDE 0.9% 1,000 ML IV ONE (16:00)
[2018-10-01] MEDS ORDERED: INSULIN REGULAR (HUMULIN R) 300UNITS/3ML IV ONE (16:15)
[2018-10-01] MEDS ORDERED: SODIUM POLYSTYRENE SULFONATE 15 G/60 ML BOT PO ONE (16:15)
[2018-10-01] MEDS ORDERED: DEXTROSE 50% WATER 50ML SYRINGE IV ONE (16:15)
[2018-10-01] MEDS ORDERED: FUROSEMIDE 100MG/10ML VIAL IV ONE (16:15)
[2018-10-01] MEDS ORDERED: CLINDAMYCIN 600 MG in DEXTROSE 5% WATER 50 ML IV ONE (17:45)
[2018-10-02] VITALS (38 sets, daily range): BP systolic 83–140; BP diastolic 37–68
[2018-10-02] MEDS ORDERED: TRAMADOL 50MG TABLET PO PRN (07:15)
[2018-10-02] MEDS: SODIUM CHLORIDE 0.9% 1,000 ML IV SCH ×2 (08:24→21:06)
[2018-10-02] MEDS ORDERED: ONDANSETRON HCL 4MG/2ML INJ IV PRN (09:00)
[2018-10-02] MEDS ORDERED: CLONIDINE 0.1MG TABLET PO PRN (09:00)
[2018-10-02 09:01] LABS: BASOPHILS % 0.3 % (0.0-2.0); EOSINOPHILS % 1.6 % (0.0-5.0); HEMATOCRIT. 22.8 % (42.0-52.0); LYMPHOCYTES % 8.7 % (20.0-50.0); MEAN CORPUSCULAR HEMOGLOBIN 30.7 pg (28.0-32.0); MEAN CORPUSCULAR VOLUME 87.9 fL (80.0-94.0); MEAN PLATELET VOLUME 8.2 fl (7.4-10.4); MONOCYTES % 8.8 % (2.0-8.0); NEUTROPHILS % 80.6 % (40.0-76.0); RED CELL DISTRIBUTION WIDTH 26.3 % (11.6-14.6)
[2018-10-02 09:10] LABS: CHLORIDE 75 mEq/L (98-107)
[2018-10-02] MEDS ORDERED: SODIUM POLYSTYRENE SULFONATE 15 G/60 ML BOT PO NR (13:00)
[2018-10-02 13:03] LABS: HEMATOCRIT 22.2 % (42.0-52.0); HEMOGLOBIN 7.8 g/dL (14.0-18.0); MEAN CORPUSCULAR HEMOGLOBIN 30.5 pg (28.0-32.0); MEAN CORPUSCULAR VOLUME 86.5 fL (80.0-94.0); RED BLOOD CELL COUNT 2.57 mill/uL (4.7-6.1)
[2018-10-02 13:37] LABS: PLATELET 49 x1000/uL (130-400)
[2018-10-02] MEDS: CEPHALEXIN 250MG CAPSULE PO SCH ×3 (13:52→23:43)
[2018-10-02 14:17] LABS: PLATELET 49 x1000/uL (130-400)
[2018-10-02 21:02] LABS: CLARITY URINE CLEAR (CLEAR); COLOR URINE ORANGE (YELLOW); KETONES URINE NEGATIVE (NEGATIVE); LEUKOCYTE ESTERASE URINE TRACE (NEGATIVE); NITRITE URINE POSITIVE (NEGATIVE); OCCULT BLOOD URINE NEGATIVE (NEGATIVE); PH URINE 5.5 (4.5-8.0); PROTEIN URINE NEGATIVE (NEGATIVE); SPECIFIC GRAVITY URINE 1.018 (1.005-1.030)
[2018-10-03] VITALS (50 sets, daily range): BP systolic 62–144; BP diastolic 34–127
[2018-10-03] MEDS: CEPHALEXIN 250MG CAPSULE PO SCH ×4 (05:20→23:39)
[2018-10-03 05:33] LABS: CHLORIDE 76 mEq/L (98-107)
[2018-10-03 05:38] LABS: PHOSPHORUS 3.9 mg/dL (2.5-4.9)
[2018-10-03 05:47] LABS: BASOPHILS % 0.2 % (0.0-2.0); HEMOGLOBIN. 7.9 g/dL (14.0-18.0); LYMPHOCYTES % 8.9 % (20.0-50.0); MEAN CORPUSCULAR HEMOGLOBIN 31.2 pg (28.0-32.0); MEAN CORPUSCULAR VOLUME 86.9 fL (80.0-94.0); MEAN PLATELET VOLUME 8.5 fl (7.4-10.4); NEUTROPHILS % 78.9 % (40.0-76.0); RED BLOOD CELL COUNT 2.53 mill/uL (4.7-6.1); RED CELL DISTRIBUTION WIDTH 27.1 % (11.6-14.6)
[2018-10-03 07:41] LABS: PLATELET 46 x1000/uL (130-400)
[2018-10-03] MEDS ORDERED: FUROSEMIDE 20MG/2ML VIAL IVP NR (09:00)
[2018-10-03] MEDS ORDERED: SODIUM CHLORIDE 3% 200 ML IV NR (09:00)
[2018-10-03] MEDS: ALBUTEROL (0.083%) 2.5MG/3ML NEB HHN SCH ×3 (09:38→22:11)
[2018-10-03] MEDS ORDERED: SODIUM POLYSTYRENE SULFONATE 15 G/60 ML BOT PO ONE (11:15)
[2018-10-03 12:17] LABS: CHLORIDE 77 mEq/L (98-107)
[2018-10-03 12:22] LABS: HEMATOCRIT 23.6 % (42.0-52.0); HEMOGLOBIN 8.2 g/dL (14.0-18.0); MEAN CORPUSCULAR HEMOGLOBIN 30.7 pg (28.0-32.0); MEAN CORPUSCULAR VOLUME 87.8 fL (80.0-94.0); RED BLOOD CELL COUNT 2.68 mill/uL (4.7-6.1); RED CELL DISTRIBUTION WIDTH 27.5 % (11.6-14.6)
[2018-10-03 12:25] LABS: PLATELET 46 x1000/uL (130-400)
[2018-10-03] MEDS ORDERED: SODIUM BICARBONATE 4% (2.4MEQ) 5ML VIAL IV ONE (14:13)
[2018-10-03] MEDS ORDERED: LIDOCAINE HCL 1% 20ML VIAL (Pyxis) INJ ONE (14:13)
[2018-10-03 14:18] LABS: T4 FREE 0.85 ng/dL (0.76-1.46)
[2018-10-03] MEDS ORDERED: DOPAMINE 400MG/250ML PREMIX 250 ML IV PRN (21:30)
[2018-10-04] VITALS (76 sets, daily range): BP systolic 66–128; BP diastolic 18–103
[2018-10-04] MEDS: ALBUTEROL (0.083%) 2.5MG/3ML NEB HHN SCH ×4 (04:50→20:37)
[2018-10-04 05:21] LABS: BASOPHILS % 0.5 % (0.0-2.0); EOSINOPHILS % 1.9 % (0.0-5.0); HEMATOCRIT. 21.3 % (42.0-52.0); HEMOGLOBIN. 7.5 g/dL (14.0-18.0); LYMPHOCYTES % 15.6 % (20.0-50.0); MEAN CORPUSCULAR HEMOGLOBIN 30.8 pg (28.0-32.0); MEAN CORPUSCULAR VOLUME 87.8 fL (80.0-94.0); MEAN PLATELET VOLUME 8.5 fl (7.4-10.4); MONOCYTES % 10.2 % (2.0-8.0); NEUTROPHILS % 71.8 % (40.0-76.0); RED BLOOD CELL COUNT 2.43 mill/uL (4.7-6.1)
[2018-10-04 05:23] LABS: INR 1.7; PARTIAL THROMBOPLASTIN TIME 45.5 sec (23.4-31.0); PROTHROMBIN TIME 17.6 sec (9.6-11.0)
[2018-10-04 05:24] LABS: CHLORIDE 79 mEq/L (98-107)
[2018-10-04 05:28] LABS: PLATELET 34 x1000/uL (130-400)
[2018-10-04] MEDS: CEPHALEXIN 250MG CAPSULE PO SCH ×4 (06:07→23:33)
[2018-10-04] MEDS ORDERED: NEPVIT MT (12:17)
[2018-10-04] MEDS ORDERED: SPIR25TA MT (12:17)
[2018-10-04] MEDS ORDERED: THIA100T13 MT (12:17)
[2018-10-04] MEDS ORDERED: MIDO5TAB MT (12:17)
[2018-10-04] MEDS ORDERED: FURO-151 MT (12:17)
[2018-10-04] MEDS ORDERED: LACT10SO7 MT (12:17)
[2018-10-04] MEDS ORDERED: POTA25TA8 PO (12:17)
[2018-10-04] MEDS: MIDODRINE HCL 5MG TABLET PO SCH (17:41)
[2018-10-05] VITALS (15 sets, daily range): BP systolic 57–98; BP diastolic 30–65
[2018-10-05] MEDS: ALBUTEROL (0.083%) 2.5MG/3ML NEB HHN SCH ×3 (01:55→20:52)
[2018-10-05] MEDS: CEPHALEXIN 250MG CAPSULE PO SCH ×4 (05:27→23:57)
[2018-10-05 07:10] LABS: BASOPHILS % 0.4 % (0.0-2.0); EOSINOPHILS % 2.3 % (0.0-5.0); HEMATOCRIT. 22.1 % (42.0-52.0); HEMOGLOBIN. 7.9 g/dL (14.0-18.0); LYMPHOCYTES % 12.8 % (20.0-50.0); MEAN CORPUSCULAR HEMOGLOBIN 31.6 pg (28.0-32.0); MEAN PLATELET VOLUME 8.5 fl (7.4-10.4); MONOCYTES % 10.8 % (2.0-8.0); NEUTROPHILS % 73.7 % (40.0-76.0); RED BLOOD CELL COUNT 2.48 mill/uL (4.7-6.1); RED CELL DISTRIBUTION WIDTH 27.2 % (11.6-14.6)
[2018-10-05 07:33] LABS: CHLORIDE 79 mEq/L (98-107)
[2018-10-05 07:48] LABS: PHOSPHORUS 5.1 mg/dL (2.5-4.9)
[2018-10-05 08:29] LABS: PLATELET 37 x1000/uL (130-400)
[2018-10-05] MEDS: MIDODRINE HCL 5MG TABLET PO SCH ×3 (08:45→18:26)
[2018-10-06] VITALS (17 sets, daily range): BP systolic 68–91; BP diastolic 28–61
[2018-10-06] MEDS: ALBUTEROL (0.083%) 2.5MG/3ML NEB HHN SCH ×4 (02:25→20:52)
[2018-10-06] MEDS: CEPHALEXIN 250MG CAPSULE PO SCH ×3 (05:26→17:23)
[2018-10-06 07:05] LABS: CHLORIDE 79 mEq/L (98-107)
[2018-10-06 07:51] LABS: BASOPHILS % 0.3 % (0.0-2.0); EOSINOPHILS % 2.5 % (0.0-5.0); LYMPHOCYTES % 8.7 % (20.0-50.0); MEAN CORPUSCULAR HEMOGLOBIN 31.1 pg (28.0-32.0); MEAN CORPUSCULAR VOLUME 89.5 fL (80.0-94.0); MEAN PLATELET VOLUME 8.5 fl (7.4-10.4); MONOCYTES % 13.5 % (2.0-8.0); RED BLOOD CELL COUNT 2.32 mill/uL (4.7-6.1); RED CELL DISTRIBUTION WIDTH 27.4 % (11.6-14.6)
[2018-10-06 08:11] LABS: HEMATOCRIT. 20.8 % (42.0-52.0); HEMOGLOBIN. 7.2 g/dL (14.0-18.0); PLATELET 37 x1000/uL (130-400)
[2018-10-06] MEDS: FUROSEMIDE 40MG TABLET PO SCH (08:35)
[2018-10-06] MEDS: MIDODRINE HCL 5MG TABLET PO SCH ×3 (08:36→17:23)
[2018-10-06 08:53] LABS: PLATELET ESTIMATE MARKEDLY DECREASED
[2018-10-06] MEDS ORDERED: SPIRONOLACTONE 50MG TABLET PO SCH (09:00)
[2018-10-06 16:21] LABS: HEMATOCRIT 21.4 % (42.0-52.0); HEMOGLOBIN 7.7 g/dL (14.0-18.0)
[2018-10-06 23:09] LABS: HEMATOCRIT 21.5 % (42.0-52.0); HEMOGLOBIN 7.7 g/dL (14.0-18.0)
[2018-10-06 23:21] LABS: INR 1.7; PROTHROMBIN TIME 16.7 sec (9.6-11.0)
[2018-10-07] VITALS (12 sets, daily range): BP systolic 70–99; BP diastolic 32–61
[2018-10-07] MEDS: CEPHALEXIN 250MG CAPSULE PO SCH ×4 (01:15→16:39)
[2018-10-07] MEDS: ALBUTEROL (0.083%) 2.5MG/3ML NEB HHN SCH ×3 (02:17→20:00)
[2018-10-07 07:13] LABS: CHLORIDE 80 mEq/L (98-107)
[2018-10-07 07:22] LABS: PHOSPHORUS 5.2 mg/dL (2.5-4.9)
[2018-10-07 07:37] LABS: BASOPHILS % 0.6 % (0.0-2.0); EOSINOPHILS % 2.6 % (0.0-5.0); HEMATOCRIT. 22.8 % (42.0-52.0); HEMOGLOBIN. 8.2 g/dL (14.0-18.0); LYMPHOCYTES % 11.8 % (20.0-50.0); MEAN CORPUSCULAR HEMOGLOBIN 32.5 pg (28.0-32.0); MEAN CORPUSCULAR VOLUME 90.3 fL (80.0-94.0); MONOCYTES % 12.1 % (2.0-8.0); NEUTROPHILS % 72.9 % (40.0-76.0); RED BLOOD CELL COUNT 2.52 mill/uL (4.7-6.1); RED CELL DISTRIBUTION WIDTH 25.8 % (11.6-14.6)
[2018-10-07] MEDS: FUROSEMIDE 40MG TABLET PO SCH (08:38)
[2018-10-07] MEDS: MIDODRINE HCL 5MG TABLET PO SCH ×3 (08:39→16:40)
[2018-10-07] MEDS ORDERED: SODIUM POLYSTYRENE SULFONATE 15 G/60 ML BOT PO SCH (12:30)
[2018-10-07] MEDS: DOCUSATE SODIUM 100MG CAPSULE PO SCH ×2 (12:38→16:43)
[2018-10-07 14:19] LABS: MEAN PLATELET VOLUME 8.7 fl (7.4-10.4)
[2018-10-07 14:20] LABS: PLATELET 40 x1000/uL (130-400)
[2018-10-08] VITALS (12 sets, daily range): BP systolic 72–92; BP diastolic 34–69
[2018-10-08] MEDS: ALBUTEROL (0.083%) 2.5MG/3ML NEB HHN SCH ×4 (01:30→21:07)
[2018-10-08] MEDS: CEPHALEXIN 250MG CAPSULE PO SCH ×4 (01:46→17:10)
[2018-10-08 06:25] LABS: BASOPHILS % 0.7 % (0.0-2.0); EOSINOPHILS % 2.4 % (0.0-5.0); LYMPHOCYTES % 12.8 % (20.0-50.0); MEAN CORPUSCULAR HEMOGLOBIN 32.7 pg (28.0-32.0); MEAN CORPUSCULAR VOLUME 91.4 fL (80.0-94.0); MEAN PLATELET VOLUME 8.6 fl (7.4-10.4); MONOCYTES % 10.9 % (2.0-8.0); NEUTROPHILS % 73.2 % (40.0-76.0); RED BLOOD CELL COUNT 2.74 mill/uL (4.7-6.1); RED CELL DISTRIBUTION WIDTH 26.1 % (11.6-14.6)
[2018-10-08 07:11] LABS: CHLORIDE 82 mEq/L (98-107)
[2018-10-08 08:21] LABS: PLATELET 35 x1000/uL (130-400)
[2018-10-08] MEDS: FUROSEMIDE 40MG TABLET PO SCH (08:45)
[2018-10-08] MEDS: MIDODRINE HCL 5MG TABLET PO SCH ×3 (08:45→17:11)
[2018-10-08] MEDS: DOCUSATE SODIUM 100MG CAPSULE PO SCH ×2 (08:45→17:10)
[2018-10-09] VITALS (12 sets, daily range): BP systolic 64–87; BP diastolic 35–50
[2018-10-09] MEDS: CEPHALEXIN 250MG CAPSULE PO SCH ×3 (00:19→12:03)
[2018-10-09] MEDS: ALBUTEROL (0.083%) 2.5MG/3ML NEB HHN SCH ×4 (01:11→21:09)
[2018-10-09] MEDS: FUROSEMIDE 40MG TABLET PO SCH (10:10)
[2018-10-09] MEDS: DOCUSATE SODIUM 100MG CAPSULE PO SCH ×2 (10:10→16:56)
[2018-10-09] MEDS: MIDODRINE HCL 5MG TABLET PO SCH ×3 (10:10→16:56)
[2018-10-09] MEDS ORDERED: SODIUM CHLORIDE 0.9% 125 ML IV SCH (12:00)
[2018-10-09 12:21] LABS: BASOPHILS % 1.1 % (0.0-2.0); EOSINOPHILS % 2.4 % (0.0-5.0); HEMATOCRIT. 22.4 % (42.0-52.0); HEMOGLOBIN. 7.8 g/dL (14.0-18.0); LYMPHOCYTES % 11.7 % (20.0-50.0); MEAN CORPUSCULAR HEMOGLOBIN 32.1 pg (28.0-32.0); MEAN CORPUSCULAR VOLUME 92.1 fL (80.0-94.0); MEAN PLATELET VOLUME 8.5 fl (7.4-10.4); MONOCYTES % 14.5 % (2.0-8.0); NEUTROPHILS % 70.3 % (40.0-76.0); RED BLOOD CELL COUNT 2.43 mill/uL (4.7-6.1); RED CELL DISTRIBUTION WIDTH 27.2 % (11.6-14.6)
[2018-10-09 12:27] LABS: PLATELET 31 x1000/uL (130-400)
[2018-10-10] VITALS (13 sets, daily range): BP systolic 56–112; BP diastolic 30–64
[2018-10-10] MEDS: ALBUTEROL (0.083%) 2.5MG/3ML NEB HHN SCH ×4 (02:50→20:52)
[2018-10-10 07:02] LABS: BASOPHILS % 0.8 % (0.0-2.0); EOSINOPHILS % 2.2 % (0.0-5.0); HEMATOCRIT. 22.9 % (42.0-52.0); HEMOGLOBIN. 8.1 g/dL (14.0-18.0); LYMPHOCYTES % 11.8 % (20.0-50.0); MEAN CORPUSCULAR HEMOGLOBIN 32.8 pg (28.0-32.0); MEAN CORPUSCULAR VOLUME 92.3 fL (80.0-94.0); MONOCYTES % 12.8 % (2.0-8.0); NEUTROPHILS % 72.4 % (40.0-76.0); RED BLOOD CELL COUNT 2.48 mill/uL (4.7-6.1); RED CELL DISTRIBUTION WIDTH 27.4 % (11.6-14.6)
[2018-10-10] MEDS ORDERED: SODIUM POLYSTYRENE SULFONATE 15 G/60 ML BOT PO NR (08:45)
[2018-10-10] MEDS: DOCUSATE SODIUM 100MG CAPSULE PO SCH ×2 (08:54→17:32)
[2018-10-10] MEDS: MIDODRINE HCL 5MG TABLET PO SCH ×3 (08:55→17:33)
[2018-10-10] MEDS: FUROSEMIDE 40MG TABLET PO SCH (09:01)
[2018-10-10 13:51] LABS: PLATELET ESTIMATE MARKEDLY DECREASED
[2018-10-10 13:56] LABS: PLATELET 34 x1000/uL (130-400)
[2018-10-10] MEDS ORDERED: SODIUM CHLORIDE 3% 150 ML IV NR (14:00)
[2018-10-11] VITALS (14 sets, daily range): BP systolic 74–95; BP diastolic 44–68
[2018-10-11] MEDS: ALBUTEROL (0.083%) 2.5MG/3ML NEB HHN SCH ×3 (02:22→15:39)
[2018-10-11 07:20] LABS: BASOPHILS % 0.5 % (0.0-2.0); EOSINOPHILS % 1.2 % (0.0-5.0); HEMATOCRIT. 22.9 % (42.0-52.0); HEMOGLOBIN. 8.1 g/dL (14.0-18.0); LYMPHOCYTES % 10.2 % (20.0-50.0); MEAN CORPUSCULAR HEMOGLOBIN 33.1 pg (28.0-32.0); MEAN CORPUSCULAR VOLUME 93.8 fL (80.0-94.0); MONOCYTES % 9.3 % (2.0-8.0); NEUTROPHILS % 78.8 % (40.0-76.0); RED BLOOD CELL COUNT 2.44 mill/uL (4.7-6.1); RED CELL DISTRIBUTION WIDTH 28.4 % (11.6-14.6)
[2018-10-11] MEDS: MIDODRINE HCL 5MG TABLET PO SCH ×2 (08:56→13:24)
[2018-10-11] MEDS: DOCUSATE SODIUM 100MG CAPSULE PO SCH (08:56)
[2018-10-11] MEDS: FUROSEMIDE 40MG TABLET PO SCH (09:00)
[2018-10-11 10:20] LABS: PHOSPHORUS 6.6 mg/dL (2.5-4.9)
[2018-10-11 10:32] LABS: MEAN PLATELET VOLUME 8.7 fl (7.4-10.4); PLATELET 33 x1000/uL (130-400)
[2018-10-11] MEDS ORDERED: LACTULOSE 20G/30ML UDC PO NR (11:15)
== END 2018-10-11 17:50 | disposition home or self-care (01) | DRG 280 ==
LOC: ER 13:44 → EDBEDREQSVC 16:07 → EDBEDREQ 16:07 → MICUSO 16:15 → EDBEDREQ 16:17 → EDBEDREQTM 16:17 → ENRESERV 10-02 04:49 → 5EST 10-05 00:45
PROVIDERS: ADMIT Family Medicine Adult Medicine; ATTEND Family Medicine Adult Medicine
PROC: 0W9G3ZZ Drainage of Peritoneal Cavity, Percutaneous Approach (ICD-10-PCS; principal; 2018-10-03)
DX: K70.40 Alcoholic hepatic failure without coma (principal); K70.31 Alcoholic cirrhosis of liver with ascites; E43 Unspecified severe protein-calorie malnutrition; D61.818 Other pancytopenia; D68.4 Acquired coagulation factor deficiency; D68.59 Other primary thrombophilia; N17.9 Acute kidney failure, unspecified; R64 Cachexia; I95.9 Hypotension, unspecified; E87.1 Hypo-osmolality and hyponatremia; D69.59 Other secondary thrombocytopenia; N18.3 Chronic kidney disease, stage 3 (moderate); E87.5 Hyperkalemia; E87.6 Hypokalemia; E87.70 Fluid overload, unspecified; F10.10 Alcohol abuse, uncomplicated; I12.9 Hypertensive chronic kidney disease with stage 1 through stage 4 chronic kidney disease, or unspecified chronic kidney disease; J44.9 Chronic obstructive pulmonary disease, unspecified; J98.11 Atelectasis; K57.30 Diverticulosis of large intestine without perforation or abscess without bleeding; K76.6 Portal hypertension; K80.20 Calculus of gallbladder without cholecystitis without obstruction; K82.8 Other specified diseases of gallbladder; L03.115 Cellulitis of right lower limb; Z68.33 Body mass index [BMI] 33.0-33.9, adult; Z79.899 Other long term (current) drug therapy
CPT/HCPCS: 36415; 49083; 71045; 74176; 76705; 80048; 80061; 82040; 82140; 82533; 83605; 83735; 83880; 83930; 84100; 84132; 84295; 84439; 84443; 84481; 84484; 85014; 85018; 85027; 85049; 85384; 86850; 86900; 86920; 93005; 93970; 94640; 96374; 96375; 97110; 97162; 97166; 97530; 99291; A6261; J1815; J1940; J3490; J7030; J7050; J7060; J7611; P9016; A4315